=== PATIENT | female | born 1985 | race Two or more races ===

== ENCOUNTER 2024-09-14 03:55 | Emergency (ER) | payer MEDICAID, OTHER ==
[~2024-09-14] VITALS: Ht 165.1 cm; Wt 66.3 kg
[2024-09-14 04:33] LABS: Basophils # (auto) 0.1 10 ^3/uL (0-0.2); Eosinophils # (auto) 0.3 10 ^3/uL (0-0.8); Neutrophils # (auto) 3.2 10 ^3/uL (1.6-8.6); Nucleated Red Blood Cells % 0.1 %; White Blood Cell 6.2 10^3/uL (4.4-10.8)
[2024-09-14 04:36] LABS: Basophils % (auto) 1.6 % (0.0-2.0); Eosinophils % (auto) 4.3 % (0.0-7.0); Hematocrit 26.2 % (36.0-46.0); Hemoglobin 7.6 g/dL (12.2-16.2); Lymphocytes % (auto) 32.6 % (10.0-50.0); Mean Corpuscular Hemoglobin 16.4 pg (28.0-32.0); Mean Corpuscular Hgb Conc. 28.9 g/dL (32.0-36.0); Mean Corpuscular Volume 56.7 fL (80.0-100.0); Monocytes # (auto) 0.6 10 ^3/uL (0-1.3); Neutrophils % (auto) 51.5 % (37.0-80.0); Platelet Count (auto) 451 10^3/uL (140-450); Red Blood Cells 4.62 10^6/uL (4.0-5.20); Red Cell Distribution Width 19.9 % (11.8-14.3)
[2024-09-14] MEDS: ONDANSETRON ODT 4 MG TAB PO ONE (04:37)
[2024-09-14] MEDS: KETOROLAC TROMETH 30 MG/ML 1ML VIAL IM ONE (04:37)
--- NOTE | 2024-09-14 04:38 | ED.PDOC ---
GI ASSESSMENT HPI Comments 38-year-old female who came to ER for abdominal pain. Patient states for the past 3 days she has been having intermittent episodes of right lower quadrant/right inguinal pain, described as throbbing, stabbing, 8/10 intensity, radiating to her right flank/back and down her right thigh. Noted to be nauseated but denies any vomiting or diarrhea. She denies any urinary symptoms such as dysuria or hematuria. Denies any possibility of . Denies any history of abdominal surgeries. Patient is self-medicated with naproxen for the pain but offered no relief Chief Complaint: Abdominal Pain Time Seen by MD: 04:36 Reviewed Notes: Nurses Notes Allergies: Coded Allergies: No Known Drug Allergy (Verified Allergy, Unknown, 09/14/24) Information Source: Patient Mode of Arrival: Ambulatory Timing: Days Duration: Intermittent Prehospital treatment: None Quality: Stabbing, Other (Throbbing) Vomitus: None Stool: Normal Severity: Moderate Recent: None Recent Hx of: None Pain Location: RLQ Associated sign and symptoms: Nausea, Abdominal Pain Review of Systems: REVIEW OF SYSTEMS: No fever, no chills, or fatigue HEENT: No sore throat, no earache, no congestion, no neck pain. Cardiac: No chest pain. No palpitations. Lungs: No shortness of breath, no cough. GI: No nausea, no vomiting, no diarrhea, no constipation, (+) abdominal pain (+) inguinal pain : No dysuria, frequency, or urgency. No hematuria. Musculoskeletal: No joint pain , no joint swelling, no extremity edema. Skin: No rash, no itching. Neuro: No headache, no dizziness, no weakness Vital Signs Vital Signs Date Time Temp Pulse Resp B/P (MAP) Pulse Ox O2 Delivery O2 Flow Rate FiO2 09/14/24 04:59 97.8 90 20 154/54 (87) 100 97.8 09/14/24 04:59 Room Air Physical Exam General: Awake, alert and oriented. No acute distress. Skin: Skin in warm, dry and intact. Appropriate color for ethnicity. Nailbeds pink with no cyanosis. HEENT: The head is normocephalic and atraumatic. Conjunctivae are clear without exudates or hemorrhage. Sclera is non-icteric. EOM are intact. No signs of nystagmus. Eyelids are normal in appearance without swelling or lesions. Oral mucosa is pink and moist Neck: The neck is supple with normal range of motion. No JVD. Cardiac: Heart rate and rhythm are normal. No murmurs, gallops, or rubs are auscultated. Respiratory: No signs of respiratory distress. Lung sounds are clear in all lobes bilaterally without rales, ronchi, or wheezes. Abdominal: Right lower quadrant tenderness with voluntary guarding. Abdomen is soft, nonrigid. Bowel sounds are present and normoactive in all four quadrants. Extremities: Upper and lower extremities are atraumatic in appearance without deformity or edema. Neurological: The patient is awake, alert and oriented to person, place, and time with normal speech. Speech is clear. There is no facial asymmetry. Psychiatric: Appropriate mood and affect. Good judgement and insight. No visual or auditory hallucinations. 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 Was a procedure done?: No GI differential Dx Differential Diagnosis: Appendicitis, Cholecystitis, Diverticular disease, Gastritis/PUD, Gastroenteritis, Hernia, Ovarian cyst/torsion, Pancreatitis, UTI, Urolithiasis X-Ray, Labs, Meds, VS Vital Signs Date Time Temp Pulse Resp B/P (MAP) Pulse Ox O2 Delivery O2 Flow Rate FiO2 09/14/24 04:59 97.8 90 20 154/54 (87) 100 97.8 09/14/24 04:59 90 20 100 Room Air 09/14/24 04:10 97.8 9 20 154/54 (87) 100 Lab Test 09/14/24 04:25 Range/Units White Blood Count 6.2 4.4-10.8 10^3/uL Red Blood Count 4.62 4.0-5.20 10^6/uL Hemoglobin 7.6 L 12.2-16.2 g/dL Hematocrit 26.2 L 36.0-46.0 % Mean Corpuscular Volume 56.7 L 80.0-100.0 fL Mean Corpuscular Hemoglobin 16.4 L 28.0-32.0 pg Mean Corpuscular Hemoglobin Concent 28.9 L 32.0-36.0 g/dL Red Cell Distribution Width 19.9 H 11.8-14.3 % Platelet Count 451 H 140-450 10^3/uL Mean Platelet Volume 8.3 6.9-10.8 fL Neutrophils (%) (Auto) 51.5 37.0-80.0 % Lymphocytes (%) (Auto) 32.6 10.0-50.0 % Monocytes (%) (Auto) 10.0 0.0-12.0 % Eosinophils (%) (Auto) 4.3 0.0-7.0 % Basophils (%) (Auto) 1.6 0.0-2.0 % Neutrophils # (Auto) 3.2 1.6-8.6 10 ^3/uL Lymphocytes # (Auto) 2.0 0.4-5.4 10 ^3/uL Monocytes # (Auto) 0.6 0-1.3 10 ^3/uL Eosinophils # (Auto) 0.3 0-0.8 10 ^3/uL Basophils # (Auto) 0.1 0-0.2 10 ^3/uL Nucleated Red Blood Cells 0.1 % Platelet Estimate Pending Sodium Level 140 136-145 mmol/L Potassium Level 4.1 3.5-5.1 mmol/L Chloride Level 107 98-107 mmol/L Carbon Dioxide Level 25 20-31 mmol/L Anion Gap 8 5-15 Blood Urea Nitrogen 11 9-23 mg/dL Creatinine 0.64 0.550-1.02 mg/dL Glomerular Filtration Rate Calc 117 >90 mL/min BUN/Creatinine Ratio 17.2 10.0-20.0 Serum Glucose 114 H 74-106 mg/dL Lactic Acid Level 1.5 0.4-2.0 mmol/L Calcium Level 9.4 8.7-10.4 mg/dL Total Bilirubin 0.3 0.2-1.0 mg/dL Aspartate Amino Transferase (AST) 8 L 13-40 U/L Alanine Aminotransferase (ALT) < 9 7-40 U/L Alkaline Phosphatase 90 46-116 U/L Total Protein 7.1 5.7-8.2 g/dL Albumin 4.2 3.2-4.8 g/dL Lipase 38 12-53 U/L Current Medications Medications (Trade) Dose Ordered Sig/Jose Route Start Time Stop Time Status Last Admin Ketorolac Tromethamine (Toradol Injection) 45 mg ONCE ONCE IM 09/14/24 04:15 09/14/24 04:16 DC 09/14/24 04:37 Ondansetron HCl (Zofran Po) 4 mg ONCE ONCE PO 09/14/24 04:15 09/14/24 04:16 DC 09/14/24 04:37 Time of 1ST Reevaluation: 04:27 Reevaluation 1ST: Unchanged Patient Education/Counseling: Diagnosis, Treatment Family Education/Counseling: No Family Present Departure 1 Departure Time of Disposition: 05:59 Impression: Primary Impression: Right lower quadrant pain Disposition: 30 STILL A PATIENT Condition: Stable Comments 38-year-old female with right pelvic/right lower quadrant pain, signed out to oncoming provider pending imaging results. Critical Care Note Critical Care Time?: No Stability Stability form required: No Heart Score Heart Score: Heart Score Response (Comments) Value History N/A 0 EKG N/A 0 Age N/A 0 Risk Factors N/A 0 Troponin N/A 0 Total 0 I personally scribed for BLIL ROLAND MD ([email or web address]) on 09/14/24 at 04:38. Electronically submitted by Tobin Ortiz ([email or web address]). BILL ROLAND MD Sep 14, 2024 04:38
[2024-09-14 04:59] VITALS: TEMP 97.8
[2024-09-14 05:02] LABS: Albumin 4.2 g/dL (3.2-4.8); Alkaline Phosphatase 90 U/L (46-116); Anion Gap 8 (5-15); BUN/Creatinine Ratio 17.2 (10.0-20.0); Bilirubin, Total 0.3 mg/dL (0.2-1.0); Blood Urea Nitrogen 11 mg/dL (9-23); Calcium 9.4 mg/dL (8.7-10.4); Carbon Dioxide 25 mmol/L (20-31); Chloride 107 mmol/L (98-107); Lipase 38 U/L (12-53); Potassium 4.1 mmol/L (3.5-5.1); Sodium 140 mmol/L (136-145); Total Protein 7.1 g/dL (5.7-8.2)
[2024-09-14 05:04] LABS: Alanine Aminotransferase < 9 U/L (7-40); Aspartate Aminotransferase 8 U/L (13-40); Glucose 114 mg/dL (74-106)
[2024-09-14 06:27] LABS: Platelet Estimate Adequate
[2024-09-14 06:28] LABS: Hypochromia Moderate; Ovalocytes FEW; Target Cell FEW
--- NOTE | 2024-09-14 06:29 | DVH ---
Exam: CT CT AB PEL WO CON-NO ORAL OR IV History: Right lower quadrant/right flank pain Comparison Study: None available at time of dictation. TECHNIQUE: Multidetector CT of the abdomen was performed from lung bases to pubic symphysis. Imaging was performed without IV contrast. Axial, coronal and sagittal multiplanar reformats were obtained fr om the axial data set by the technologist. Radiation Dose Information: CT Dose: CTDI volume is 25 mGy. Dose-length product is 250 mGy*cm FINDINGS: Evaluation of solid organs is limited due to lack of intravenous contrast use. Findings: Lung Bases: No acute or significant lung base finding. Normal heart size. No pleural or pericardial effusion. Liver: The liver is normal in size. No focal lesions. Gallbladder and Biliary Tree: Unremarkable Spleen: Unremarkable Pancreas: The pancreas is grossly normal in appearance. Adrenal Glands: Unremarkable Kidneys: Moderate right hydroureteronephrosis secondary to an obstructing 4 mm right UVJ stone. There are additional bilateral renal calculi measuring up to 3 mm in the bilateral upper pole. Bladder: Grossly unremarkable for degree of distention. Bowel: The stomach is grossly normal in appearance. Small bowel and colon are normal in caliber and d istribution. Normal appendix is visualized in the right lower quadrant without findings of appendici tis. Ascites: Absent Lymphadenopathy: No mesenteric, retroperitoneal or periportal lymphadenopathy. Abdominal Wall and Mesentery: Unremarkable. Vasculature: The visualized abdominal aorta is normal in size and caliber. Evaluation of abdominal a nd pelvic vessels is limited due to lack of intravenous contrast. Pelvic Organs: Unremarkable Musculoskeletal: No aggressive focal bony lesions, acute fractures or dislocation. Soft tissues: Unremarkable IMPRESSION: Moderate right hydroureteronephrosis secondary to an obstructing 4 mm right UVJ stone. There are jevon tional bilateral renal calculi measuring up to 3 mm in the bilateral upper pole. Radiation optimization: All CT scans at this facility use at least one of these dose optimization dayron hniques: automated exposure control mA and/or kV adjustment per patient size (includes targeted exam s where dose is matched to clinical indication) or iterative reconstruction.
--- NOTE | 2024-09-14 06:54 | DVH ---
INDICATION: Right lower quadrant tenderness, rule out ovarian torsion TECHNIQUE: Multiple real-time grayscale transabdominal sonographic images along with color and duplex Doppler of the uterus and ovaries were obtained. COMPARISON: 09-14-24 FINDINGS: The uterus measures 9 x 6 x 6 cm. The endometrial stripe measures 0.1 cm. 7 mm endometria l polyp. The right ovary measures 4 x 3 x 4 cm. 2 cm right ovarian cyst. The left ovary measures 4 x 2 x 2 cm. Subsequent color and duplex Doppler interrogation of the ovaries demonstrated symmetric vascular flow to both ovaries, though this does not exclude the possibility of torsion due to the dual blood suppl y. IMPRESSION: 1. 7 mm endometrial polyp. 2. Incidental note made of 6 mm right UVJ stone as seen on the CT.
[2024-09-14 07:30] VITALS: PULSE 69; RESP 18; O2SAT 99
[2024-09-14 08:09] LABS: Urine Bacteria FEW /hpf (None Seen); Urine Blood 2+ /uL (Negative); Urine Clarity Clear (Clear); Urine Protein, UAD Negative (Negative); Urine Specific Gravity 1.005 (1.001-1.035); Urine Urobilinogen Normal (Negative); Urine WBC 1 /hpf (0 - 5); Urine pH 6.5 (5.0-9.0)
[2024-09-14 08:10] LABS: Urine Color Light-Yellow (Yellow)
[2024-09-14] MEDS: MORPHINE SULFATE INJ 2 MG/ml SYRG IV ONE (08:45)
[2024-09-14] MEDS: ONDANSETRON HCL 4 MG/2 ML VIAL IV ONE (08:45)
[2024-09-14] MEDS: cefTRIAXone 1GM/50ML D5W 50 ML IV ONE (08:45)
[2024-09-14] MEDS: SODIUM CHLORIDE 0.9% 1,000 ML IV ONE (08:45)
[2024-09-14] MEDS ORDERED: TAMS-35 PO (09:11)
[2024-09-14] MEDS ORDERED: FERR1TAB36 PO (09:11)
[2024-09-14] MEDS ORDERED: ACET-1304 PO (09:11)
[2024-09-14] MEDS ORDERED: IBUP-1455 PO (09:11)
[2024-09-14] MEDS ORDERED: CEPH500C PO (09:11)
[2024-09-14 10:36] VITALS: BP 118/64; PULSE 80; RESP 18; O2SAT 99
== END 2024-09-14 10:35 | disposition home or self-care (01) ==
LOC: ER 03:55
DX: R10.31 Right lower quadrant pain (principal)
CPT/HCPCS: 36415; 74176; 76856; 80053; 81001; 81025; 83605; 83690; 85025; 96365; 96372; 96375; 99285; J0696; J1885; J2270; J2405; Q0162